=== PATIENT | male | born 1990 | race Caucasian/White ===

== ENCOUNTER 2025-01-17 20:51 | Emergency (ER) | payer OTHER, SELFPAY ==
--- NOTE | ~2025-01-17 | CT_ITS ---
CTA brain carotid Ordering provider: Augusta Marie PA-C History: . Headache during sexual intercourse . Comparison: None. Technique: CT angiogram head and neck was performed following timed intravenous injection of contrast . Thin slice axial images and reformatted coronal images were obtained. Three dimensional reformatted images of the brain were also obtained using a [employer] workstation. DLP: [id number] mGy-cm FINDINGS: HEAD: --ANTERIOR AND MIDDLE CEREBRAL ARTERIES AND BRANCHES: Normal caliber and contour. --INTERNAL CAROTID ARTERIES: Normal caliber and contour. --BASILAR ARTERY AND BRANCHES: Normal caliber and contour. No atheromatous disease. --POSTERIOR CEREBRAL ARTERIES: Normal caliber and contour --POSTERIOR COMMUNICATING ARTERIES: Not visualized likely related to congenital absence or small size . --ANEURYSM: None visualized. --BRAIN: The ventricles are normal in size, shape and position. There is no mass, mass effect or midline shift. There is no abnormal extra-axial fluid collection or intracranial hemorrhage. Opacification of the left sphenoid sinus with an air-fluid level. Mucoperiosteal thickening within the bilateral maxillary sinuses, left greater than right. The bilateral frontal sinuses are unremarkable. The mastoid air cells are well aerated. No acute displaced fractures within the overlying cranium. NECK: --RIGHT CERVICAL CAROTID SYSTEM: Normal caliber and contour. Percent stenosis per NASCET criteria is 0% No carotid dissection. No stenosis of the cervical carotid system. --LEFT CERVICAL CAROTID SYSTEM: Normal caliber and contour. Percent stenosis per NASCET criteria is 0% No carotid dissection. No stenosis of the cervical carotid system. --VERTEBRAL ARTERIES: Normal caliber and contour. --VISUALIZED AORTIC ARCH AND BRANCHING VESSELS: Normal caliber and contour. No significant atheromato us disease. --SOFT TISSUES: Unremarkable --CERVICAL SPINE: Age appropriate degenerative changes. IMPRESSION: Normal CTA head and neck. Percent stenosis per NASCET criteria is 0%. Inflammatory sinus disease, as detailed above Reviewed, dictated and finalized at location A.
[2025-01-17 21:05] VITALS: BP 191/111; PULSE 74; RESP 15; TEMP 36.2; O2SAT 100
--- NOTE | 2025-01-17 21:36 | ED_ITS ---
HPI - Headache General Chief Complaint: Headache Stated Complaint: Headache, high BP Time Seen by Provider: 01/17/25 21:20 History of Present Illness HPI Narrative: 35-year-old male with no past medical history presents with significant other at bedside for a headache that started 7:30 p.m. tonight during sexual intercourse. Patient states the headache was sudden onset, diffuse and throbbing. The headache started prior to orgasm. He did not lose consciousness. He is not anticoagulated. He denies vision changes, focal numbness or weakness, neck pain or fever, nuchal rigidity. He states he stopped sexual intercourse and checked his BP several times which ranged between 180s-190s/110s-120s which prompted him to come to the ED. he denies formal diagnosis of hypertension but does state that he is told by his dentist every time he goes to his dental appointments that his blood pressure is elevated. Also states he attempted to donate plasma several weeks ago but was unable to due to due diastolic BP of 100. He has been checking his BP at home every couple of weeks since then and states it normally runs 160s/100s. He has not seen his PCP in over a year. He is not on any antihypertensives. Denies chest pain, abdominal pain, shortness of breath. Related Data Allergies Allergy/AdvReac Type Severity Reaction Status Date / Time No Known Allergies Allergy Verified 01/17/25 20:52 Review of Systems 2 Review of Systems: All systems reviewed & are unremarkable except as noted in HPI and below Exam 2 Narrative: GENERAL: Well-appearing, well-nourished, and in no acute distress. HEAD: Normocephalic, atraumatic. EYES: PERRLA and EOMI. ENT: Nares clear, no rhinorrhea or epistaxis. Mucous membranes moist. NECK: Supple. No nuchal rigidity CHEST: Clear to auscultation. No respiratory distress. HEART: Regular rate and rhythm. No murmur heard. Normal peripheral pulses. ABDOMEN: Soft, nontender, nondistended, normal active bowel sounds. EXTREMITIES: Normal range of motion. No edema. SKIN: Warm, dry, no rash. NEURO: No focal deficits. Alert and oriented x4. Cranial nerves 2-12 intact. Strength 5/5 in BUE and BLE. Sensation intact throughout. Normal [id number]. No pronator drift. Course Vital Signs Vital signs: Vital Signs Temperature 97.2 F L 01/17/25 21:05 Pulse Rate 74 01/17/25 21:05 Respiratory Rate 15 01/17/25 21:05 Blood Pressure 191/111 H 01/17/25 21:05 Pulse Oximetry 100 01/17/25 21:05 Oxygen Delivery Room Air 01/17/25 21:05 Temperature 97.2 F L 01/17/25 21:05 Pulse Rate 71 01/17/25 23:15 Respiratory Rate 14 01/17/25 23:15 Blood Pressure 142/116 H 01/17/25 23:01 Pulse Oximetry 97 01/17/25 23:15 Oxygen Delivery Room Air 01/17/25 21:05 MDM - Headache MDM Narrative Medical decision making narrative: 35-year-old male with no past medical history presents to the emergency department for acute onset headache that started at 1930 today during sexual intercourse. Also has HTN. Triage vitals remarkable for hypertension of 191/111. On my evaluation patient is resting comfortably in exam bed. He has no neurologic deficits. CBC shows no leukocytosis or anemia. Chemistries are unremarkable with no evidence of end-organ damage, ABELARDO or liver injury. CTA brain carotid is unremarkable, does note inflammatory sinus disease. Patient was updated on results. He received IV fluids and headache cocktail with improvement. On re-evaluation he is resting comfortably in exam bed. Blood pressure has improved. Will provide Flonase for sinus disease. Patient was given follow-up for PCP. He was advised to take a daily blood pressure log and was given strict ED return precautions. He is agreeable with the plan verbalized understanding. Discharged in stable condition. Lab Data 01/17/25 21:40 01/17/25 21:46 Labs: Lab Results 01/17/25 01/17/25 Range/Units 21:40 21:46 WBC 8.9 (4.5-10.0) K/mm3 RBC 4.97 (4.6-6.20) M/mm3 Hgb 14.1 (14.0-18.0) g/dL Hct 42.2 (42.0-52.0) % MCV 84.9 (80-100) fl MCH 28.4 (26-34) pg MCHC 33.4 (32-36) g/dl RDW 13.9 (11.5-14.5) % Plt Count 279 (150-375) k/mm3 MPV 10.1 (7.4-10.4) fl Immature Gran % (Auto) 0.3 (0-0.5) % Neut % (Auto) 55.2 (45.5-73.1) % Lymph % (Auto) 25.3 (18.3-44.2) % [place] % (Auto) 10.0 H (2.6-8.5) % Eos % (Auto) 8.3 H (0-4.4) % Baso % (Auto) 0.9 (0.2-1.2) % Lymph # (Auto) 2.26 (0.9-3.2) K/mm3 [place] # (Auto) 0.9 H (0.1-0.6) K/mm3 Eos # (Auto) 0.7 H (0-0.3) K/mm3 Baso # (Auto) 0.1 (0.0-0.1) K/mm3 Abs Immat Gran (auto) 0.03 (0.00-0.031) K/mm3 Absolute Neuts (auto) 4.9 (1.3-6.7) K/mm3 Absolute Nucleated RBC 0.000 (0.0-0.012) K/mm3 Nucleated RBC % 0.0 (0.0-0.2) % PT 13.8 (11.1-14.7) Seconds INR 1.0 APTT 36.5 (22.3-36.8) Seconds Sodium 138 (137-145) mmol/L Potassium 4.2 (3.4-5.0) mmol/L Chloride 101 (98-107) mmol/L Carbon Dioxide 28 (22-30) mmol/L Anion Gap 9 (4-12) mmol/L BUN 15 (9-20) mg/dL Creatinine 1.15 1.30 (0.7-1.3) mg/dL Estim Creat Clear Calc 85 75 ml/min Estimated GFR > 60 > 60 (59 - ) Glucose 100 (65-110) mg/dL Calcium 9.5 (8.4-10.2) mg/dL Total Bilirubin 0.5 (0.2-1.3) mg/dL AST 29 (17-59) U/L ALT 43 (6-50) U/L Alkaline Phosphatase 50 (38-126) U/L Total Protein 8.0 (6.3-8.2) g/dL Albumin 4.9 (3.5-5.1) g/dL Discharge Plan Discharge Clinical Impression: Sinus disease Headache Qualifiers: Headache type: unspecified Headache chronicity pattern: acute headache I ntractability: not intractable Qualified Code(s): R51.9 - Headache, unspecified Patient Disposition: Home Condition: Stable Instructions: Antibiotic Form, Acute Headache (ED) Additional Instructions: Your evaluated in the emergency department for headache. Your exam and CT is reassuring. He did have evidence of sinus disease and had flooding sent to the pharmacy. Please take your blood pressure once daily and keep a blood pressure log and follow-up closely with primary care provider as she may need to be started on blood pressure medications. Take Tylenol ibuprofen as needed [id number] as directed for pain. Return to the emergency department if you develop vision changes, focal numbness or weakness, loss of consciousness, seizure, chest pain or shortness of breath, or other concerning symptoms. Patient Language: Venezuelan Prescriptions: New fluticasone propionate [Flonase Allergy Relief] 50 mcg/actuation spray,suspension 1 spray intranasal Q12H Qty: 16 0RF Rx Instructions: administer into each nostril Follow-up/Referrals: PHYSICIAN NOT ON STAFF,NONSTAFF [Non-Staff] - Michael Cedillo MD [Physician] -
[2025-01-17 21:46] LABS: Basophils Absolute Auto 0.1 K/mm3 (0.0-0.1); Basophils Percent Auto 0.9 % (0.2-1.2); Eosinophils Absolute Auto 0.7 K/mm3 (0-0.3); Eosinophils Percent Auto 8.3 % (0-4.4); Hematocrit 42.2 % (42.0-52.0); Hemoglobin 14.1 g/dL (14.0-18.0); Immature Granulocyte Absolute 0.03 K/mm3 (0.00-0.031); Immature Granulocyte Percent A 0.3 % (0-0.5); Lymphocytes Absolute Auto 2.26 K/mm3 (0.9-3.2); Lymphocytes Percent Auto 25.3 % (18.3-44.2); Mean Corpuscular HGB Conc 33.4 g/dl (32-36); Mean Corpuscular Hemoglobin 28.4 pg (26-34); Mean Corpuscular Volume 84.9 fl (80-100); Mean Platelet Volume 10.1 fl (7.4-10.4); Monocytes Absolute Auto 0.9 K/mm3 (0.1-0.6); Neutrophils Absolute Auto 4.9 K/mm3 (1.3-6.7); Neutrophils Percent Auto 55.2 % (45.5-73.1); Platelet Count Result 279 k/mm3 (150-375); Red Blood Count 4.97 M/mm3 (4.6-6.20); Red Cell Distribution Width 13.9 % (11.5-14.5); White Blood Count 8.9 K/mm3 (4.5-10.0)
[2025-01-17 21:49] LABS: Estimated CRCL calculation 75 ml/min; Estimated Glomerular Filt Rate > 60
[2025-01-17 21:54] LABS: Alanine Aminotransferase 43 U/L (6-50); Albumin Level 4.9 g/dL (3.5-5.1); Alkaline Phosphatase 50 U/L (38-126); Anion Gap 9 mmol/L (4-12); Aspartate Amino Transferase 29 U/L (17-59); Bilirubin,Total 0.5 mg/dL (0.2-1.3); Blood Urea Nitrogen 15 mg/dL (9-20); Calcium 9.5 mg/dL (8.4-10.2); Carbon Dioxide 28 mmol/L (22-30); Chloride 101 mmol/L (98-107); Estimated CRCL calculation 85 ml/min; Estimated Glomerular Filt Rate > 60; Glucose 100 mg/dL (65-110); Potassium 4.2 mmol/L (3.4-5.0); Sodium 138 mmol/L (137-145)
[2025-01-17 21:58] LABS: Partial Thromboplastin Time 36.5 Seconds (22.3-36.8); Prothrombin Time 13.8 Seconds (11.1-14.7)
[2025-01-17 22:00] VITALS: BP 158/96; PULSE 92; RESP 14; O2SAT 98
--- OUTSIDE RECORDS SUMMARY | 2025-01-17 22:18 | XMS_ITS | Continuity of Care Document ---
Author Organization [facility] Address [address] [place] [address] [address] [place] [address] Phone Care Team Providers Care Receiving Barn Custodian Name Role Phone Silvia Harmon PT Unavailable Unavailable Procedures Procedure Date WORK COND/WORK HARD RE EVAL Work Conditioning Initial 2 hrs 021 Work Conditioning Initial 2 hrs 021 Work Conditioning Initial 2 hrs 021 Work Conditioning Initial 2 hrs 021 Work Conditioning Initial 2 hrs 021 Work Cond Initial Report Work Conditioning Initial 2 hrs 021 Progress Note Therapeutic Exercise Therapeutic Activities Neuromuscular Re-Ed Therapeutic Activities Neuromuscular Re-Ed Therapeutic Exercise Therapeutic Activities Progress Note Therapeutic Exercise Neuromuscular Re-Ed Neuromuscular Re-Ed Therapeutic Exercise Therapeutic Activities Manual Therapy Therapeutic Activities Manual Therapy Neuromuscular Re-Ed Therapeutic Exercise Therapeutic Activities Neuromuscular Re-Ed Manual Therapy Therapeutic Exercise Neuromuscular Re-Ed Manual Therapy Therapeutic Exercise Therapeutic Activities Manual Therapy Neuromuscular Re-Ed Therapeutic Activities Therapeutic Exercise Hot or Cold Pack Progress Note Therapeutic Activities Neuromuscular Re-Ed Therapeutic Exercise Manual Therapy Therapeutic Activities Therapeutic Exercise Manual Therapy Neuromuscular Re-Ed Progress Note Neuromuscular Re-Ed Manual Therapy Therapeutic Activities Therapeutic Exercise Therapeutic Exercise Neuromuscular Re-Ed Therapeutic Activities Manual Therapy Therapeutic Activities Neuromuscular Re-Ed Therapeutic Exercise Manual Therapy Therapeutic Activities Therapeutic Exercise Neuromuscular Re-Ed Manual Therapy Therapeutic Exercise Therapeutic Activities Manual Therapy Neuromuscular Re-Ed Hot or Cold Pack Therapeutic Activities Therapeutic Exercise PT Evaluation Moderate Complexity Therapeutic Activities Manual Therapy Neuromuscular Re-Ed Therapeutic Exercise PT Evaluation Low Complexity Advance Directives Directive Yes / No Effective Date File Name No Information Encounters Encounter Description Practice Location Reason(s) For Visit Diagnoses Date Provider Providers Copied on Encounter [facility] [facility], [place], [place], [id number], tel:[phone] [place] No Information Faustino Vega. . Referring Provider: Jan Mckinney [address] , [place], [address]. tel:[phone] [facility], [place], [place], [id number], [place] tel:[phone] [place] No Information 1 Amy Woodwardke. . Referring Provider: Jan Mckinney [address], [place], [address]. tel:[phone] [facility], [address], [place], [place], [id number], tel:[phone] [place] No Information 1 Makler Luke. . Referring Provider: Jan Mckinney [address] , [place], [address]. tel:[phone] [facility] [address], [place], [place], [id number], tel:[phone] [place] No Information 1 Megan Pichardo. . Referring Provider: Sheron Martinez [address], [place], [address]. tel:[phone] [facility] [facility], [place], [place], [id number], [place] tel:[phone] [place] No Information 1 Amy Woodwardke. . Referring Provider: Jan Mckinney [address], [place], [address]. tel:[phone] [facility] [facility] [facility], [place], [place], [id number], [place] tel:[phone] [place] No Information 1 Faustino Vega. . Referring Provider: Jan Mckinney [address] , [place], [address]. tel:[phone] [facility], [place], [place], [address], [place] tel:[phone] [place] No Information 1 Nicholas [place], [place], [place]. Referring Provider: Jan Mckinney [address] , [place], [address]. tel:[phone] [facility], [address], [place], [place], [id number], [place] tel:[phone] [place] No Information 1 Garrels Kylee. . Referring Provider: Sheron [address], [place], [address]. tel:[phone] [facility] [address], [place], [place], [id number], [place] tel:[phone] [place] No Information 1 Makler Luke. . Referring Provider: Jan Mckinney [address] , [place], [address]. tel:[phone] [facility], [place], [place], [id number], tel:[phone] [place] No Information 1 Garrels Klyee. . Referring Provider: Sheron [address] , [place], [address]. tel:[phone] [facility] [address], [place], [place], [id number], tel:[phone] [place] No Information 1 Makler Luke. . Referring Provider: Sheron [address], [place], [address]. tel:[phone] [facility] [address], [place], [place], [id number], [place] tel:[phone] [place] No Information 1 Peterson [place], [place], [place]. Referring Provider: Jan Mckinney [address] , [place], [address]. tel:[phone] [facility], [place], [place], [address], [place] tel:[phone] [place] No Information 1 Nicholas Ojedan. , [place], [place]. Referring Provider: Jan Mckinney [address], [place], [address]. tel:[phone] [facility] [address], [place], [place], [id number], tel:[phone] [place] No Information Ravi-1 0- 1 Nicholas Hilton. , [place], [place]. Referring Provider: Sheron [address], [place], [address]. tel:[phone] [facility] [address], [place], [place], [id number], [place] tel:[phone] [place] No Information Ravi-0 8 1 Nicholas [place] , [place], [place]. Referring Provider: Sheron [address], [place], [address]. tel:[phone] [place] [address] [address], [place], [place], [id number], tel:[phone] [place] No Information Ravi-0 3- 1 Makler Luke. . Referring Provider: Sheron [address], [place], [address]. tel:[phone] [facility] [address], [place], [place], [id number], tel:[phone] [place] No Information Ravi-0 1- 1 Makler Luke. . Referring Provider: Sheron [address], [place], [address]. tel:[phone] [facility] [address], [place], [place], [id number], [place] tel:[phone] [place] No Information 1 Nicholas Ojedan. , [place], [place]. Referring Provider: Sheron [address], [place], [address]. tel:[phone] [facility] [address], [place], [place], [address], [place] tel:[phone] [place] No Information 1 [facility]. Referring Provider: [address] , [place], [address]. tel:[phone] [facility] [address], [id number], tel:[phone] [place] No Information 1 [facility]. Referring Provider: [address] , [place], [address]. tel:[phone] [facility] [address], [id number], tel:[phone] [place] No Information 1 [facility]. Referring Provider: Sheron Martinez , [place], [address]. tel:[phone] [facility] [address], [id number], tel:[phone] [place] No Information 1 [facility]. Referring Provider: Sheron Martinez , [place], [address]. tel:[phone] [facility] [address], [id number], tel:[phone] [place] No Information 1 Magdiel Aguirre. . Referring Provider: Nicolas Ochoa, [address] [place], [address]. tel:[phone] Family History Family Member Type Diagnosis Age At Onset No Information Payers Payer name Insurance type Covered republican ID Authoriza tion(s) [employer] [facility] [id number] Social History Type Description Quantity Date Captured Comments Sex Male Smoking Status No Information Chief Complaint And Reason For Visit No Information Reason For Referral Reason For Referral No Information History Of Present Illness Encounter Date Complaint History Of Prese nt Illness No Information Functional Status Date Functional Assessmen t No Information Instructions Date Instruction Additional Infor lizdane Giving encouragement to exercise Related to Overweight Giving encouragement to exercise Related to Overweight Prescribed activity/exercise edu cation Related to Overweight Dietary needs education Related to Overweight Assessments Type Assessment Date No Information Patient Care Teams Name Effective Dates (start - stop) Status Members No Information
--- OUTSIDE RECORDS SUMMARY | 2025-01-17 22:18 | XMS_ITS | Referral Summary ---
Author Organization [facility] Address [address] [place] [address] Care Team Providers Care Shafting Worker Name Role Phone Ambrosio Deleon MD Primary Care Provider [phone] Allergies No known active allergies Medications meloxicam (MOBIC) 15 mg tabletIndicatio ns:Acute midline low back pain without sciatica,Coccyx pain TAKE 1 TABLET(15 MG) BY MOUTH DAILY 14 tablet 4 Active rosuvastatin (CRESTOR) 5 mg tablet TAKE 1 TABLET(5 MG) BY MOUTH DAILY 30 tablet 5 Active rosuvastatin (CRESTOR) 5 mg tablet Take 1 tablet (5 mg total) by mouth daily 90 tablet 3 12/21/19 25 Discontinued Active Problems No known active problems Immunizations Immunization Administration Dates Next Due Influenza, Quadrivalent, Spl it, Preservative Free, Intramuscular 09/17/2021,08/23/2020 Influenza, Unspecified 07/29/2023,06/26/2022 Tdap 2022 Social History Tobacco Use Types Packs/Day Years Used Date Smoking Tobacco: Never Smokeless Tobacco: Never Tobacco Cessation:Counseling Given: Not Answered PHQ-2 Answer Date Recorded PHQ-2 Total Score (If total score is 3 or more points, staff should administer the PHQ-9) 0 12/09/2023 Personal Safety Answer Date Recorded Getting School Help Needed Not on file 11/04 Sex and Gender Information Value Date Recorded Sex Assigned at Not on file Legal Sex Male 9:08 AM CDT Gender Identity Male 12/21/2021 9:24 AM CDT Sexual Orientation Straight 12/21/2021 9: 24 AM CDT Last Filed Vital Signs Vital Sign Reading Time Taken Comments Blood Pressure 138/88 04/19/2024 2:36 PM CDT Pulse 96 04/19/2024 2:36 PM CDT Temperature 37.1 C (98.7 F) 04/19/2024 2:36 PM CDT Respiratory Rate 18 04/19/2024 2:36 PM CDT Oxygen Saturation 96% 04/19/2024 2:36 PM CDT Inhaled Oxygen Concentration - - Weight 101.7 kg (224 lb 4.8 oz) 04/19/2024 2:36 PM CDT Height 170.2 cm (5' 7 ) 04/19/2024 2:36 PM CDT Body Mass Index 35.13 04/19/2024 2:36 PM CDT Plan of Treatment Not on file Insurance [employer] Care Teams Shafting Worker Relationship Specialty Start Date End Date Ambrosio Deleon MD PCP - General Family Medicine 12/21/21
--- OUTSIDE RECORDS SUMMARY | 2025-01-17 22:18 | XMS_ITS | Clinical Summary ---
Author Organization [facility] Address [address] [place] [address] Care Team Providers Care Computational Chemist Name Role Phone Unavailable Primary Care Provider Unavailabl e Source Comments [facility],non-owned Affiliates and Associated Physician Practices is amultiple site organization consisting of ambulatory clinics and hospital sitesin [place], [place], [place] and [place]. This disclosure is being madepursuant to the Care Everywhere program and may not contain all information available regarding this patient. Last updated 18.[facility] Social History Tobacco Use Types Packs/Day Years Used Date Smoking Tobacco: Never Assessed Sex and Gender Information Value Date Recorded Sex Assigned at Not on file Legal Sex Male 11:28 AM CDT Gender Identity Not on file Sexual Orientation Not on file Plan of Treatment Health Maintenance Due Date Last Done Comments HIV SCREENING 01/06/2003 HEPATITIS C SCREENING 01/02/2006 DTAP/TDAP/TD VACCINES (1 - Tdap) 01/06/2007 HEPATITIS B VACCINE (1 of 3 - 19+ 3-dose series) 01/06/2007 COVID-19 VACCINE ( - 2023-2 5 season) 2024 DEPRESSION SCREENING 09/26/2024 INFLUENZA VACCINE (Season Ended) 2025 ZOSTER VACCINE (1 of 2) 01/06/2038 HIB VACCINE Aged Out No longer eligi ble based on patient's age to complete this topic HPV VACCINE Aged Out No longer eligi ble based on patient's age to complete this topic MENINGOCOCCAL (Group B) VACC INE SHARED DECISION-MAKING Aged Out No longer eligibl e based on patient's age to complete this topic MENINGOCOCCAL GROUPS A/C/Y/W VACCINE Aged Out No longer eligible b ased on patient's age to complete this topic PNEUMOCOCCAL VACCINE Aged Out No long er eligible based on patient's age to complete this topic Insurance CIGNA CIGNA
--- OUTSIDE RECORDS SUMMARY | 2025-01-17 22:18 | XMS_ITS | Clinical Summary ---
Author Organization [facility] Address [address] [place] [address] Phone Care Team Providers Care State Epidemiologist Name Role Phone Unavailable Primary Care Provider Unavailabl e Social History Tobacco Use Types Packs/Day Years Used Date Smoking Tobacco: Never Assessed Sex and Gender Information Value Date Recorded Sex Assigned at Not on file Legal Sex Male 7:56 AM CDT Gender Identity Not on file Sexual Orientation Not on file Plan of Treatment Health Maintenance Due Date Last Done Comments HEPATITIS B VACCINES (1 of 3 - 19+ 3-dose series) 01/06/2007 INFLUENZA VACCINE (#1) 2024 , 08/23/2020 DTAP/TDAP/TD VACCINES (2 - Td or Tdap) 01/08/2032 2022 HPV VACCINES Aged Out No longer eligi ble based on patient's age to complete this topic Insurance * Guarantor: [id number] Account Type Relation to Patient Date of Phone Billing Address Workers Comp [employer] [id number]
--- OUTSIDE RECORDS SUMMARY | 2025-01-17 22:18 | XMS_ITS | Encounter Summary ---
Author Organization [facility] Address [address] [place] [address] Care Team Providers Care Nib Adjuster Name Role Phone Unavailable Primary Care Provider Unavailabl e Encounter Details Date Type Department Care Team (Late st Contact Info) Description 03/03/2022 Lab Requisition [facility] [address] [place] [address] Ranulfo Valencia MD [address] [place] [address] Social History Tobacco Use Types Packs/Day Years Used Date Smoking Tobacco: Never Assessed Sex and Gender Information Value Date Recorded Sex Assigned at Not on file Legal Sex Male 11:28 AM CDT Gender Identity Not on file Sexual Orientation Not on file documented as of this encounter Plan of Treatment Not on file documented as of this encounter Procedures Procedure Name Priority Date/Time Associated Diagnosis Comments DERMATOPATHOLOGY Routine 03/02/2022 3:33 AM CDT documented in this encounter Results * DERMATOPATHOLOGY (03/02/2022 3:33 AM CDT) Case Report Dermatopathology Report Case: [id number] Authorizing Provider: Ranulfo Valencia MD Collected: 03/02/2022 03:33 AM Ordering Location: [facility] Received: 03/03/2022 11:39 AM Pathologist: Kimberlyn Cazares MD Specimen: Skin, left lower abd @ waistline 2 3:34 PM CDT DERMATOPATHOLOGY LABORATORY Final Diagnosis Specimen A. 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 Please Check Margins 2 3:34 PM CDT DERMATOPATHOLOGY LABORATORY Gross Description Specimen A: Received is one formalin filled container labeled with the patients name and designated left lower abd @ waistline. The specimen consists of a shave removal measuring [id number]. Jar 0. 2 3:34 PM T DERMATOPATHOLOGY LABORATORY Microscopic Description Specimen A. SKIN, left lower abd @ waistline: This is a compound nevus. There is architectural disorder characterized by a lentiginous proliferation of melanocytes between irregular nevus nests of cells along the dermal-epidermal junction. There is underlying lamellar fibroplasia of the papillary dermis. The intradermal component is bland in appearance and matures with depth. (Compound Demar's Nevus or Compound Dysplastic Nevus) This lesion is not present at the sampled margin of the specimen. 2 3:34 PM T DERMATOPATHOLOGY LABORATORY Disclaimer An external and internal positive and negative controls are appropriate for the histochemical, immunohistochemical and immunofluorescence stain(s) in this case (if any), except where stated explicitly. The performance characteristics of the stain(s) cited in this report were developed and its performance characteristic determined by the Dermatopathology Laboratory at [facility], directed by Dr. Billy Gama. These tests need not be, and therefore are not, approved by the [place] Food and Drug Administration. The tests are used for clinical purposes. Billing Codes Specimen Charges Stain Charges 80311 1 2 3:34 PM CDT DERMATOPATHOLOGY LABORATORY Embedded Images 2 3:34 PM CDT DERMATOPATHOLOGY LABORATORY Pathology/Cytolo gy TISSUE SPECIMEN FROM SKIN / Unknown 03/02/2022 3:33 AM CDT 03/03/2022 11:39 AM CDT Ranulfo Valencia MD LAB - PATHOLOGY/CYTOLOGY ORD ERABLES Final Result DERMATOPATHOLOGY LABORATORY [facility] - Department of Dermatology [address], [address] [phone] documented in this encounter Visit Diagnoses Not on filedocumented in this encounter
--- OUTSIDE RECORDS SUMMARY | 2025-01-17 22:18 | XMS_ITS | Clinical Summary ---
Author Organization [facility] Address [address] [place] [address] Care Team Providers Care Placement Officer Name Role Phone Ambrosio Deleon MD Primary Care Provider [phone] Allergies No known active allergies Medications meloxicam [...] Intramuscular 09/17/2021,08/23/2020 Influenza, Unspecified 07/29/2023,06/26/2022 Tdap 2022 Surgical History Surgery Date Site/Laterality Comments SHOULDER ARTHROSCOPY W/ SUPE RIOR LABRAL ANTERIOR POSTERIOR LESION REPAIR Right ANKLE SURGERY 09/26/2013 - 09/25/2014 Right KNEE ARTHROSCOPY W/ LATERAL RELEASE 2016 Family History Medical History Relation Name Comments Heart attack Father Pedro Pettit Heart disease Father Pedro Pettit Relation Name Status Comments Father Pedro Pettit Alive Social History Tobacco Use Types Packs/Day Years [...] Orientation Straight 12/21/2021 9: 24 AM CDT Obstetrics History Last Filed Vital Signs Vital Sign Reading [...] 04/19/2024 2:36 PM CDT Plan of Treatment Health Maintenance Due Date Last Done Comments Hepatitis C Screening 1988 Varicella Vaccines (1 of 2 - 13+ 2-dose series) 01/06/2001 Hepatitis B Screening 01/06/2006 Regular Well Visit/Exam 18-64 2023 2022 Covid-19 Vaccine ( season) 2024 09/17/2021, 02/27/2021, 02/06/2021 Depression Screening 12/08/2024 12/09/2023, 04/12/2023, 2022 Influenza Vaccine (Season Ended) 2025 07/29/2023, 06/26/2022, 09/17/2021, Additional history exists DTaP/Tdap/Td Vaccine (2 - Td or Tdap) 01/08/2032 2022 HPV Vaccines Aged Out No longer eligi ble based on patient's age to complete this topic Pneumococcal vaccine <65 Aged Out No longer eligible based on patient's age to complete this topic Insurance [employer] Care Teams Placement Officer Relationship Specialty Start Date End Date Ambrosio Deleon MD PCP - General Family Medicine 12/21/21
--- OUTSIDE RECORDS SUMMARY | 2025-01-17 22:18 | XMS_ITS | Clinical Summary ---
Author Organization [facility] Address [address] [place] [address] Care Team Providers Care Charrer Name Role Phone Ambrosio Deleon MD Primary Care Provider [phone] Social History Tobacco Use Types Packs/Day Years Used Date Smoking Tobacco: Never Assessed Sex and Gender Information Value Date Recorded Sex Assigned at Not on file Legal Sex Male 10:42 AM CDT Gender Identity Not on file Sexual Orientation Not on file Plan of Treatment Health Maintenance Due Date Last Done Comments Annual Physical 01/06/1991 Hepatitis C 01/06/2006 Hepatitis B Vaccines (1 of 3 - 19+ 3-dose series) 01/06/2007 COVID-19 Vaccine (2023-2 5 season) 2024 09/17/2021, 02/27/2021, 02/06/2021 DTaP, Tdap and Td Vaccines ( 2 - Td or Tdap) 01/08/2032 2022 HPV Vaccines Aged Out No longer eligi ble based on patient's age to complete this topic Meningococcal B Vaccine Aged Out No l onger eligible based on patient's age to complete this topic Meningococcal Vaccine Aged Out No dorothea elijah eligible based on patient's age to complete this topic Pneumococcal Vaccine: Pediatrics (0 to 5 Years) and At-Risk Patients (6 to 49 Years) Aged Out No longer eligible b ased on patient's age to complete this topic RSV Immunizations Under 20 Months Aged Out No longer eligible b ased on patient's age to complete this topic Insurance [employer] Care Teams Charrer Relationship Specialty Start Date End Date Ambrosio Deleon MD [address] [facility] [address] [place] [address] PCP - General FAMILY PRACTICE 04/26/23
[2025-01-17] MEDS: diphenhydrAMINE HCl INJ 50 MG/ML VIAL 25 MG IV PUSH (22:28)
[2025-01-17] MEDS: SODIUM CHLORIDE 0.9% IV 1,000 ML 999 ML IV CONT (22:28)
[2025-01-17] MEDS: PROCHLORPERAZINE EDISYLATE 10 MG/2 ML VIAL IV PUSH (22:33)
[2025-01-17] MEDS: KETOROLAC 30 MG/ML VIAL (*BKC) IV PUSH (22:33)
[2025-01-17 23:00] VITALS: PULSE 77; RESP 15; O2SAT 96
[2025-01-17 23:01] VITALS: BP 142/116; PULSE 86; RESP 16; O2SAT 100
--- NOTE | 2025-01-17 23:10 | PC.NURSE ---
care and report given to ZAIN Villarreal. all questions answered.
[2025-01-17 23:15] VITALS: PULSE 71; RESP 14; O2SAT 97
[2025-01-17 23:37] VITALS: BP 160/108; PULSE 96; RESP 14; TEMP 36.7; O2SAT 98
== END 2025-01-17 23:39 | disposition home or self-care (01) ==
PROVIDERS: Emergency Provider Physician Assistant; PCP Family Medicine
DX: R51.9 Headache, unspecified (principal); J32.0 Chronic maxillary sinusitis; R03.0 Elevated blood-pressure reading, without diagnosis of hypertension
CPT/HCPCS: 36415; 70496; 70498; 80053; 85025; 85610; 85730; 96361; 96374; 96375; 99284; J0780; J1200; J1885; J7030; Q9967